=== PATIENT | female | born 1985 ===

== ENCOUNTER 2019-05-14 16:17 | Inpatient (IN) | payer OTHER ==
[~2019-05-14] VITALS: Ht 149.9 cm; Wt 146.0 kg
[2019-05-15] MEDS ORDERED: PROVIDA DHA CA1 EACH PO (08:27)
== END 2019-05-18 10:04 | DRG 833 ==
LOC: LDR 16:17 → OB/GYN 16:17
PROVIDERS: ADMIT Obstetrics & Gynecology
PROC: 4A0HXFZ Measurement of Products of Conception, Cardiac Rhythm, External Approach (ICD-10-PCS; principal; 2019-05-14)
DX: O41.03X0 Oligohydramnios, third trimester, not applicable or unspecified (principal); Z3A.35 35 weeks gestation of pregnancy

== ENCOUNTER 2019-05-27 15:45 | Inpatient (IN) | payer OTHER ==
[~2019-05-27] VITALS: Ht 149.9 cm; Wt 140.0 kg
[~2019-05-27 15:45] MED LIST: PROVIDA DHA CA1 EACH PO
== END 2019-05-30 13:11 | disposition home or self-care (01) | DRG 786 ==
LOC: OBS/DEL 15:45 → LDR 19:07 → OB/GYN 19:07
PROVIDERS: ADMIT Obstetrics & Gynecology
PROC: 4A1HXCZ Monitoring of Products of Conception, Cardiac Rate, External Approach (ICD-10-PCS; 2019-05-27)
PROC: 10D00Z1 Extraction of Products of Conception, Low, Open Approach (ICD-10-PCS; principal; 2019-05-27 19:00)
DX: O82 Encounter for cesarean delivery without indication (principal); O60.14X0 Preterm labor third trimester with preterm delivery third trimester, not applicable or unspecified; O76 Abnormality in fetal heart rate and rhythm complicating labor and delivery; Z3A.36 36 weeks gestation of pregnancy; Z37.0 Single live birth